=== PATIENT | female | born 1950 | race African-American/Black ===

== ENCOUNTER 2019-08-20 10:52 | Emergency (ER) | payer MEDICARE, OTHER ==
[~2019-08-20] VITALS: Ht 160 cm; Wt 119.7 kg
[2019-08-20 11:17] VITALS: BP 122/87
== END 2019-08-20 13:45 | disposition home or self-care (01) ==
LOC: ER 11:04
DX: J20.9 Acute bronchitis, unspecified (principal); E11.9 Type 2 diabetes mellitus without complications
CPT/HCPCS: 71046